=== PATIENT | female | born 1955 | race Caucasian/White ===

== ENCOUNTER 2017-06-11 14:41 | Day surgery (SDC) | payer OTHER ==
[2017-06-11] MEDS ORDERED: FENTAnyl 50 MCG/ML VIAL (17:40)
[2017-06-11] MEDS ORDERED: PROPOFOL 20 ML (17:40)
[2017-06-11] MEDS ORDERED: MIDAZOLAM 1 MG/ML 2 ML INJ (17:40)
[2017-06-11] MEDS ORDERED: EPHEDrine SULFATE 50 MG/5 ML SYG (18:16)
== END 2017-06-11 19:04 | disposition home or self-care (01) ==
LOC: GIL 14:41
DX: K21.9 Gastro-esophageal reflux disease without esophagitis (principal); K44.9 Diaphragmatic hernia without obstruction or gangrene; K29.70 Gastritis, unspecified, without bleeding; D17.5 Benign lipomatous neoplasm of intra-abdominal organs; K64.8 Other hemorrhoids; M19.90 Unspecified osteoarthritis, unspecified site; E11.9 Type 2 diabetes mellitus without complications; I10 Essential (primary) hypertension; Z88.0 Allergy status to penicillin
CPT/HCPCS: 43239; 82962; 87081; 88305